=== PATIENT | female | born 1955 | race Caucasian/White ===

== ENCOUNTER 2025-01-16 20:43 | Observation (INO) | payer MEDICARE, OTHER ==
[~2025-01-16] VITALS: Ht 162.6 cm; Wt 83.9 kg
[2025-01-16 20:53] VITALS: TEMP 98.4
[2025-01-16 21:22] LABS: BASOPHILS % 0.5 % (0.0-1.0); EOSINOPHILS % 4.4 % (0.0-6.0); LYMPHOCYTES % 25.7 % (18.0-39.1); MONOCYTES % 7.1 % (4.4-11.3); NEUTROPHILS % 61.6 % (38.7-80.0); RED CELL DISTRIBUTION WIDTH 13.2 % (11.7-14.4)
[2025-01-16 21:49] LABS: EST GLOMERULAR FILTRATION RATE 71.0 ML/MIN (>=60)
[2025-01-16 22:10] VITALS: PULSE 85; RESP 18; O2SAT 97
[2025-01-16] MEDS ORDERED: Morphine 4mg INJECTION 4 MG/ML INJ IV PRN (22:15)
[2025-01-16] MEDS ORDERED: ONDANSETRON HCL INJ 2MG/ML 2ML 2 MG/ML VIAL IV PRN (22:15)
[2025-01-16] MEDS: SODIUM CHLORIDE 0.9% 1000ML 1,000 ML IV SCH (22:52)
[2025-01-16 23:00] VITALS: PULSE 81; RESP 15
[2025-01-16 23:59] VITALS: BP 143/87; PULSE 74; RESP 20; TEMP 97.9; O2SAT 100
[2025-01-17] VITALS (7 sets, daily range): BP systolic 123–143; BP diastolic 64–87; PULSE 56–74; RESP 16–20; TEMP 97–97.9; O2SAT 95–100
[2025-01-17 07:26] LABS: BASOPHILS % 0.4 % (0.0-1.0); EOSINOPHILS % 6.5 % (0.0-6.0); LYMPHOCYTES % 28.9 % (18.0-39.1); MONOCYTES % 8.9 % (4.4-11.3); NEUTROPHILS % 54.9 % (38.7-80.0); RED CELL DISTRIBUTION WIDTH 13.4 % (11.7-14.4)
[2025-01-17 08:27] LABS: EST GLOMERULAR FILTRATION RATE 84.0 ML/MIN (>=60)
[2025-01-17] MEDS ORDERED: ATORVASTATIN CA20 MG PO (09:26)
[2025-01-17] MEDS ORDERED: LISINOPRIL10 MG PO (09:27)
[2025-01-17] MEDS ORDERED: DUPIXENT P300 MG/2 M (09:28)
[2025-01-17] MEDS ORDERED: TRELEGY ELLIPT1 EAC1 (09:28)
[2025-01-17] MEDS ORDERED: FOSAMAX (09:29)
[2025-01-17] MEDS ORDERED: ALENDRONATE SOD70 MG (09:31)
[2025-01-17] MEDS ORDERED: HYDRALAZINE HCL 20 MG/ML VIAL IV PRN (11:30)
[2025-01-17] MEDS ORDERED: DOCUSATE SODIUM 100 MG CAP PO PRN (11:30)
[2025-01-17] MEDS ORDERED: POTASSIUM CHLORIDE 20 MEQ TAB CR PO PRN (11:30)
[2025-01-17] MEDS ORDERED: ACETAMINOPHEN 325 MG TAB PO PRN (11:30)
[2025-01-17] MEDS ORDERED: LIDOCAINE 4% PATCH TP PRN (11:30)
[2025-01-17] MEDS ORDERED: MELATONIN 5 MG TABLET PO PRN (11:30)
[2025-01-17] MEDS ORDERED: DEXTROSE 50% SYRINGE 50 ML IV PRN (11:30)
[2025-01-17] MEDS ORDERED: BENZONATATE 100 MG CAP PO PRN (11:30)
[2025-01-17] MEDS ORDERED: ALBUTEROL/IPRATROPIUM 3 ML NEB NEB PRN (11:30)
[2025-01-17] MEDS ORDERED: DIPHENHYDRAMINE HCL 25 MG CAP PO PRN (11:30)
[2025-01-17] MEDS: ENOXAPARIN SOD INJ 40 MG/0.4 ML SYR SC SCH (16:18)
[2025-01-17] MEDS: ASPIRIN 81 MG ENTERIC COATED PO SCH (16:18)
[2025-01-17] MEDS: ATORVASTATIN 10 MG TAB PO SCH (20:59)
[2025-01-18] VITALS: BP 126/69; PULSE 56; RESP 16; TEMP 98.1; O2SAT 100
[2025-01-18 04:57] VITALS: BP 124/88; PULSE 60; RESP 16; TEMP 97.7; O2SAT 100
[2025-01-18 06:06] LABS: BASOPHILS % 0.9 % (0.0-1.0); EOSINOPHILS % 7.4 % (0.0-6.0); LYMPHOCYTES % 35.1 % (18.0-39.1); MONOCYTES % 8.3 % (4.4-11.3); NEUTROPHILS % 47.9 % (38.7-80.0); RED CELL DISTRIBUTION WIDTH 13.2 % (11.7-14.4)
[2025-01-18 06:44] LABS: CHOL/HDL RATIO 2.3 (3.0-3.6); EST GLOMERULAR FILTRATION RATE 91.0 ML/MIN (>=60); LDL CHOLESTEROL 62.0 MG/DL (60-130); PHOSPHORUS 3.3 MG/DL (2.3-4.7)
[2025-01-18 08:00] VITALS: BP 124/88; PULSE 60; RESP 16; TEMP 97.7; O2SAT 100
[2025-01-18 08:21] VITALS: BP 137/80; PULSE 57; RESP 20; TEMP 98.1; O2SAT 98
[2025-01-18] MEDS: LISINOPRIL 20 MG TAB PO SCH (09:39)
[2025-01-18] MEDS: PANTOPRAZOLE SOD 40 MG TABEC PO SCH (09:39)
[2025-01-18 12:34] VITALS: BP 136/69; PULSE 56; RESP 19; TEMP 97.7; O2SAT 100
[2025-01-18 16:08] VITALS: BP 123/94; PULSE 57; RESP 19; TEMP 98.4; O2SAT 99
== END 2025-01-18 19:15 | disposition home or self-care (01) ==
LOC: ER 20:45 → ERHOLD 22:42 → MED/SURG2 01-17 00:14
PROVIDERS: ADMIT Internal Medicine; ATTEND Internal Medicine
DX: R00.2 Palpitations (principal); R07.89 Other chest pain; I10 Essential (primary) hypertension; Z86.79 Personal history of other diseases of the circulatory system; E78.5 Hyperlipidemia, unspecified; J45.909 Unspecified asthma, uncomplicated
CPT/HCPCS: 36415 ×2; 71045; 80048; 80053 ×2; 80061; 82550 ×3; 83036; 83690; 83735; 83880; 84100; 84443; 84484 ×3; 85025 ×3; 93005; 93306; 94799 ×2; 99284; G0378 ×3; J1650 ×2; J2470; J7030 ×2